=== PATIENT | male | born 1990 | race Caucasian/White ===

== ENCOUNTER 2018-06-08 10:25 | Emergency (ER) | payer MEDICAID, OTHER ==
[~2018-06-08] VITALS: Ht 180.3 cm; Wt 126.1 kg
[2018-06-08] MEDS ORDERED: SODIUM CHLORIDE 0.9% 1,000 ML IVB ONE (10:43)
[2018-06-08 10:44] VITALS: BP 131/81
[2018-06-08] MEDS ORDERED: FAMOTIDINE (10MG/ML) 2ML VL IV ONE (10:45)
[2018-06-08] MEDS ORDERED: ONDANSETRON HCL 4 MG/2 ML VIAL IV ONE (10:45)
[2018-06-08 11:03] LABS: Basophils # (auto) 0 uL; Basophils % (auto) 0.7 % (0.0-2.0); Eosinophils # (auto) 0.2 uL; Eosinophils % (auto) 3.8 % (0.0-7.0); Hematocrit 45.1 % (41.0-53.0); Hemoglobin 15.8 g/dL (13.5-17.5); Lymphocytes # (auto) 1.5 uL; Lymphocytes % (auto) 24.9 % (10.0-50.0); Mean Corpuscular Hemoglobin 29.7 pg (28.0-32.0); Mean Corpuscular Hgb Conc. 35.1 g/dL (32.0-36.0); Mean Corpuscular Volume 84.6 fL (80.0-100.0); Monocytes # (auto) 0.5 uL; Monocytes % (auto) 8.3 % (0.0-12.0); Neutrophils # (auto) 3.7 uL; Neutrophils % (auto) 62.3 % (37.0-80.0); Nucleated Red Blood Cells % 0.2 %; Platelet Count (auto) 211 10^3/uL (140-450); Red Blood Cells 5.33 10^6/uL (4.5-5.90); Red Cell Distribution Width 13.2 % (11.8-14.3)
[2018-06-08 11:23] LABS: Potassium 3.9 mmol/L (3.5-5.1)
[2018-06-08 11:27] LABS: Albumin 3.9 g/dL (3.4-5.0); Calcium 9.1 mg/dL (8.5-10.1)
[2018-06-08 11:32] LABS: Bilirubin, Total 0.5 mg/dL (0.2-1.0); Total Protein 7.9 g/dL (6.4-8.2)
[2018-06-08 11:42] LABS: BUN/Creatinine Ratio 8.3
== END 2018-06-08 12:26 | disposition home or self-care (01) ==
LOC: ER 10:25
DX: R11.10 Vomiting, unspecified (principal); R10.84 Generalized abdominal pain
CPT/HCPCS: 36415; 74176; 80053; 82150; 83690; 85025; 94761; 96361; 96374; 96375; 99284; J2405; J3490; J7030